=== PATIENT | female | born 1955 | race Caucasian/White ===

== ENCOUNTER → 2016-12-06 | Outpatient (CLI) | payer BC ==
--- NOTE | 2016-12-06 11:29 | XR ---
EXAMINATION TYPE: XR KUB DATE OF EXAM: 12/06/2016 11:25 AM COMPARISON: 10/03/2010 HISTORY: Pain TECHNIQUE: One view abdominal series FINDINGS: The osseous structures are intact. The bowel gas pattern is nonspecific. Ureteral stent has been rem manuela. Pelvic calcifications are stable. There are at least 4 lower pole left renal calculi and 5 mid and lower pole right renal calculi all m easuring less than 5 mm. Degenerative change lower lumbar spine. Arthropathy of the hips. Surgical clip right upper quadrant. IMPRESSION: 1. Bilateral nephrolithiasis.
== END | disposition home or self-care (01) ==
LOC: RADXRMAIN 10:52
PROVIDERS: ATTEND Internal Medicine Hematology & Oncology
DX: N20.0 Calculus of kidney (principal); J01.00 Acute maxillary sinusitis, unspecified; B01.9 Varicella without complication; E11.9 Type 2 diabetes mellitus without complications; I10 Essential (primary) hypertension
CPT/HCPCS: 74000

== ENCOUNTER → 2023-12-10 | Outpatient (CLI) | payer BC ==
--- NOTE | 2023-12-10 12:02 | BD ---
EXAMINATION TYPE: Axial Bone Density DATE OF EXAM: 12/10/2023 CLINICAL HISTORY: 68 years old Female. ICD-10 CODE: M85.88 OTH DISRD OF BONE DENSITY AND STRUCTURE, OT Height: 66 in Weight: 151 lbs FRAX RISK QUESTIONS: History of Fracture in Adulthood: lt elbow age 66 Secondary Osteoporosis: 1. Type 1 Diabetes: yes 3. Menopause before 45: total hysterectomy age 41 EXAM MEASUREMENTS: Bone mineral densitometry was performed using the [employer] System. Bone mineral density as measured about the Lumbar spine is: ----- L1-L4(G/cm2): 1.267 T Score Values are as follows: ----- L1: 0.5 ----- L2: 0.5 ----- L3: 1.6 ----- L4: 0.2 ----- L1-L4: 0.7 Z Score Values are as follows: ----- L1: 2.0 ----- L2: 2.0 ----- L3: 3.1 ----- L4: 1.7 ----- L1-L4: 2.2 Bone mineral density baseline Bone mineral density about the R hip (g/cm2): 0.995 Bone mineral density about the L hip (g/cm2): 1.016 T Score values are as follows: -----R Neck: -1.1 -----L Neck: -1.0 -----R Total: -0.1 -----L Total: 0.1 Z Score values are as follows: -----R Neck: 0.4 -----L Neck: 0.5 -----R Total: 1.2 -----L Total: 1.3 Bone mineral density baseline FRAX%s: The graph provided illustrates a 8.6% chance for a major osteoporotic fx and a 0.8% chance fo r the hips probability for fx in 10 years time. IMPRESSION: Osteopenia (T Score between -2.5 and -1). There is slightly increased risk of fracture and the patient may be considered for treatment. Re-Screen 2-5 years. NOTE: T-SCORE=SD OF THE YOUNG ADULT MEAN.
== END | disposition home or self-care (01) ==
LOC: RADBDWWP 09:15
PROVIDERS: ATTEND Internal Medicine Hematology & Oncology
DX: M85.89 Other specified disorders of bone density and structure, multiple sites (principal); I10 Essential (primary) hypertension; B01.9 Varicella without complication; J01.00 Acute maxillary sinusitis, unspecified; E78.5 Hyperlipidemia, unspecified; E11.9 Type 2 diabetes mellitus without complications; Z78.0 Asymptomatic menopausal state
CPT/HCPCS: 77080

== ENCOUNTER → 2024-10-27 | Outpatient (CLI) | payer BC ==
[2024-10-27 19:21] LABS: Microalbumin Creatinine Ratio <10 mg/g Cr (0-30)
[2024-10-27 20:26] LABS: BUN/Creat Ratio 26.14 Ratio (12.00-20.00); Blood Urea Nitrogen 18.3 mg/dL (9.0-27.0); Chol/HDL Ratio 3.33 Ratio; Glucose 188 mg/dL (70-110); LDL Cholesterol,Calculated 101.2 mg/dL (0.0-131.0)
[2024-10-27 20:27] LABS: ALT 26 U/L (8-44); AST 19 U/L (13-35); Albumin 4.3 g/dL (3.8-4.9); Albumin/Globulin Ratio 2.26 Ratio (1.60-3.17); Alkaline Phosphatase 100 U/L (41-126); Calcium 9.8 mg/dL (8.7-10.3); Carbon Dioxide 30.5 mmol/L (21.6-31.8); Chloride 104 mmol/L (96-109); Globulin 1.9 g/dL (1.6-3.3); Potassium 4.7 mmol/L (3.5-5.5); Sodium 144 mmol/L (135-145); Total Bilirubin 0.5 mg/dL (0.3-1.2); Total Protein 6.2 g/dL (6.2-8.2)
== END | disposition home or self-care (01) ==
LOC: LABWHC1 10:04
PROVIDERS: ATTEND Internal Medicine Endocrinology, Diabetes & Metabolism
DX: E11.65 Type 2 diabetes mellitus with hyperglycemia (principal)
CPT/HCPCS: 36415; 80053; 80061; 82043; 82570; 83036; 84443